=== PATIENT | female | born 1980 | race Caucasian/White ===

== ENCOUNTER 2019-05-16 23:44 | Inpatient (IN) | payer SELFPAY ==
[2019-05-17] VITALS (17 sets, daily range): BP systolic 0–156; BP diastolic 0–84; PULSE 58–81; RESP 16–18; TEMP 36.6–37.3; O2SAT 96–98; BMI 23.0
[2019-05-17] MEDS: lactated ringers 1,000 ML 999 ML (00:05)
[2019-05-17] MEDS: oxytocin 30 UNIT/500 ML BAG 600 UNIT IV (00:25)
--- NOTE | 2019-05-17 00:41 | P.HP_ITS ---
Providers/Chief Complaint Admitting Physician: Cecilio Modi MD Chief Complaint: CONTRACTIONS History of Present Illness MILAD SAAVEDRA is a 38 year old G8, P7 with unsure dating who presented to labor and delivery triage with abdominal pain. Her is complicated by unsure level of care, prior section x1 for breech presentation during second , prior x5, poor social support. The patient presented to labor and delivery triage on the evening of 05/16/2019 with contractions that started at approximately 7:30 in the evening. They got progressively worse and by 10 PM there were quite painful. She stated that her aunt, Cheryl, is a director sanitation bureau and had been caring for her, however was out of town so she presented to labor and delivery triage. In labor and delivery, she was found to be complete, vertex and with a bulging bag of fluid at 2345 on 05/16/2019. I was called as the next on-call provider since she had no provider at the hospital. Review of Systems Narrative: The patient denies fevers, chest pains, cough, nausea, vomiting, diarrhea, constipation, dysuria. She denies prior history of STDs. Medications/Allergies Allergies Allergy/AdvReac Type Severity Reaction Status Date / Time No Known Allergies Allergy Verified 05/17/19 00:37 PFSH Acute PFSH: Statuses (acute, chronic, etc) shown below reflect problem list status as previously entered and may not be historically accurate Medical History (Updated 05/17/19 @ 00:49 by Cecilio Modi MD) History of (Acute) Surgical History (Updated 05/17/19 @ 00:49 by Cecilio Modi MD) History of section (Acute) Physical Exam Narrative: EXAM NARRATIVE: General: Alert and oriented Eyes: Pupils equal round and reactive to light and accommodation Mouth: Mucous membranes moist, pharynx non-erythematous, smells of alcohol on breath Cardiac: Regular rate and rhythm without murmurs Lungs: Clear to auscultation bilaterally without wheezes, crackles or rhonchi Abdomen: Soft, fundus smaller than expected for gestational age Extremities: No edema in the bilateral lower extremities A&P Additional A&P Information The patient presented and delivered rather quickly. Please see delivery note for full details. From the best of my understanding, the patient has not had any significant care other than knowing that this infant is a girl. As far as I know she has not had any labs done. She also smells like she has been drinking alcohol. Because of this we will go ahead and get a full panel as well as a urine drug screen and alcohol level. Currently the patient is doing well and her bleeding is very little. We will watch for any signs of abnormalities in her labs. We will proceed with routine care otherwise. Attestations Medical Necessity Statement*: Patient will be here for greater than 2 midnights due to routine intrapartum and management of labor and delivery. Coding Level of Care Code Acute Wiring Mechanic for Sher Alejandra
--- NOTE | 2019-05-17 00:53 | P.PCNOB_ITS ---
Delivery Note: Date of delivery: May 17, 2019 Pre-delivery diagnoses: 1. Intrauterine at apparent term 2. Limited or potentially lack of care 3. Possible alcohol intoxication pending labs 4. Thick meconium 5. Smoker Post-delivery diagnoses: 1. Intrauterine status post vaginal after section apparently at term 2. Limited or potentially lack of care 3. Possible alcohol intoxication pending labs 4. Thick meconium 5. Nuchal cord x1 6. Smoker 7. Delivery of healthy infant female weighing 6 pounds 10 ounces with Apgars of 7 and 9 Procedure: Vaginal after section Op report anesthesia: None Delivering Physician: Cecilio Modi MD Estimated blood loss (mL): 100 Pre-Delivery Course: The patient presented to labor and delivery triage with contractions that started at approximately 7:30 PM that progressively got worse at 10 PM. For this reason she presented to labor and delivery triage on the evening of 05/16/2019. Upon admission, she was noted to be complete with a bulging bag of fluid. I was called at 2349 on 05/16/2019. I arrived at 12:06 AM on 05/17/2019. The patient stated that she had care from a drywall hanger framer, who is apparently her and and named Rni, however she was out of town, so she presented to the hospital for further evaluation. The patient did not have any OB labs done. She did know that she was going to have a girl. A urine sample and labs were drawn prior to delivery. The patient denied any history of STDs. Delivery: Patient was complete at 2345 on 05/16/2019. AROM was performed at 12:10 AM on 05/17/2019. A moderate amount of meconium stained fluid was noted. The patient began pushing at 12:13 AM on 05/17/2019. The patient pushed well and the infant delivered in the OA position at 12:21 AM on 05/17/2019. There was a tight nuchal cord that could not be reduced as the patient was continue to push. The left shoulder was the anterior shoulder and it delivered with ease. Rest of the delivered with ease. The nuchal cord was reduced and the 's mouth and nose were bulb suctioned by myself. The infant was crying shortly after delivery. Infant was placed on the mother's chest where the nurses were waiting to care for her. The cord was clamped and cut by myself after approximately 1 minute. Cord blood was obtained. The cord was then drained of blood and traction was placed on the umbilical cord. The placenta delivered at 12:24 AM without complication. The placenta was noted to be intact with a peripheral insertion site. The cervix was inspected and no lacerations were noted. The vaginal wall was inspected and a mild abrasion was noted on the right sidewall. There was no bleeding from this lesion and no need for stitches. The uterus was massaged and noted to be firm and midline. There was very little bleeding. Estimated blood loss was 100 mL. The infant's weight was 6 pounds 10 ounces with Apgars of 7 and 9. Currently both the mother and infant are doing well. Post-Delivery Status: We will get routine blood work including an OB panel, alcohol levels, and a urine drug screen to further evaluate. Follow-up based on findings. All questions were answered. Coding Level of Care Code Acute Specialty Therapist for Sher Alejandra
[2019-05-17 01:43] LABS: Rubella IgG 34.1 IU/mL (0.0-9.0)
[2019-05-17 01:52] LABS: Rapid Plasma Reagin Syphilis Nonreactive (Nonreactive)
[2019-05-17 01:54] LABS: Alanine Aminotransferase < 5 U/L (0-33); Albumin Level 3.4 g/dL (3.5-5.2); Alcohol Level < 10 mg/dL (0-10); Alkaline Phosphatase 221 IU/L (35-105); Anion Gap 16.7 (5-19); Aspartate Amino Transferase 14 U/L (0-32); Blood Urea Nitrogen 9 mg/dL (6-20); Calcium 8.8 mg/dL (8.5-10.5); Carbon Dioxide 20 mmol/L (22-29); Chloride 99 mmol/L (98-107); Globulin 3.9 g/dL (1.3-4.6); Glomerular Filtration Rate 112.5 mL/min (90-130); Glucose 123 mg/dL (65-115); Potassium 3.7 mmol/L (3.5-5.1); Sodium 132 mmol/L (136-145); Total Bilirubin 0.2 mg/dL (0.15-1.2); Total Protein 7.3 g/dL (6.6-8.7)
[2019-05-17 01:57] LABS: Hepatitis B Surface Antigen. Non-Reactive (Nonreactive); Hepatitis C Virus Antibody Non-Reactive (Nonreactive)
[2019-05-17 01:59] LABS: HIV 1 & 2 Antibody Non-Reactive (Non-Reactiv); HIV 1 & 2 Antigen Non-Reactive (Non-Reactiv)
[2019-05-17 02:42] LABS: Basophils # 0.1 10^3/uL (0.0-0.1); Basophils % 0.3 %; Eosinophils # 0.1 10^3/uL (0.0-0.8); Eosinophils % 0.3 %; Hemoglobin 10.7 g/dL (11.5-15.3); Lymphocytes # 2.6 10^3/uL (0.8-4.8); Lymphocytes % 11.1 %; Mean Corpuscular HGB Conc 32.4 g/dL (30.0-36.0); Mean Corpuscular Hemoglobin 30.1 pg (28.0-34.0); Mean Corpuscular Volume 92.7 fL (81-99); Mean Platelet Volume 13.2 fL (7.4-10.4); Monocytes # 0.9 10^3/uL (0.2-0.9); Monocytes % 3.9 %; Neutrophils % 82.7 %; Nucleated Red Blood Cells % 0 %; Platelet Count 236 10^3/cmm (130-400); Red Blood Count 3.56 10^6/uL (4.1-5.3); Red Cell Distribution Width 13.2 % (12.1-15.1); Slide Review Slide Review Perform
[2019-05-17 02:50] LABS: Amphetamines Screen Urine Negative (Negative); Barbiturates Screen Urine Negative (Negative); Benzodiazepines Screen Urine Negative (Negative); Cocaine Screen Urine Negative (Negative); Opiate Screen Urine Negative (Negative); PCP Screen Urine Negative (Negative); THC Screen Urine Negative (Negative)
[2019-05-17] MEDS: HYDROcodone-acetaminophen 5-325 mg Tablet PO ×2 (03:25→13:44)
[2019-05-17] MEDS: prenatal vitamin Capsule 1 CAP PO (09:15)
[2019-05-17] MEDS: docusate sodium 100 mg Capsule PO ×2 (09:15→18:21)
[2019-05-17 13:14] LABS: Hematocrit 32.4 % (37.0-47.0); Hemoglobin 10.6 g/dL (11.5-15.3); Mean Corpuscular HGB Conc 32.7 g/dL (30.0-36.0); Mean Corpuscular Hemoglobin 29.6 pg (28.0-34.0); Mean Corpuscular Volume 90.5 fL (81-99); Mean Platelet Volume 13.3 fL (7.4-10.4); Platelet Count 240 10^3/cmm (130-400); Red Blood Count 3.58 10^6/uL (4.1-5.3); White Blood Count 19.5 10^3/uL (4.0-10.0)
[2019-05-17] MEDS: metroNIDAZOLE 500 MG Tablet 2000 MG PO (18:53)
[2019-05-18 04:00] VITALS: BP 118/74; PULSE 79; RESP 16; TEMP 36.7; O2SAT 98
--- NOTE | 2019-05-18 07:59 | PM.DCS ---
Discharge Providers Date of Admission: 05/16/19 23:44 Date of Discharge: May 18, 2019 Attending Provider at Admission: Cecilio Modi MD Attending Provider at Discharge: Cecilio Modi MD Diagnoses at Discharge Discharge Diagnosis (1) Intrauterine : Status: Acute (2) Smoker: Status: Acute Other Information Additional DC diagnoses/information: 1. Intrauterine status post vaginal after section apparently at term 2. Limited or potentially lack of care 3. Possible alcohol use -ruled out with negative labs 4. Thick meconium 5. Nuchal cord x1 6. Smoker 7. Delivery of healthy female weighing 6 pounds 10 ounces with Apgars of 7 and 9 8. Trichomoniasis Reason for Visit Reason for Visit: Reason For Visit: CONTRACTIONS Hospital Course Hospital Course: Pre-Delivery Course: The patient presented to labor and delivery triage with contractions that started at approximately 7:30 PM that progressively got worse at 10 PM. For this reason she presented to labor and delivery triage on the evening of 05/16/2019. Upon admission, she was noted to be complete with a bulging bag of fluid. I was called at 2349 on 05/16/2019. I arrived at 12:06 AM on 05/17/2019. The patient stated that she had care from a lance crewmember/mlrs sergeant, who is apparently her and and named Rin, however she was out of town, so she presented to the hospital for further evaluation. The patient did not have any OB labs done. She did know that she was going to have a girl. A urine sample and labs were drawn prior to delivery. The patient denied any history of STDs. Delivery: Patient was complete at 2345 on 05/16/2019. AROM was performed at 12:10 AM on 05/17/2019. A moderate amount of meconium stained fluid was noted. The patient began pushing at 12:13 AM on 05/17/2019. The patient pushed well and the infant delivered in the OA position at 12:21 AM on 05/17/2019. There was a tight nuchal cord that could not be reduced as the patient was continue to push. The left shoulder was the anterior shoulder and it delivered with ease. Rest of the infant delivered with ease. The nuchal cord was reduced and the infant's mouth and nose were bulb suctioned by myself. The infant was crying shortly after delivery. Infant was placed on the mother's chest where the nurses were waiting to care for her. The cord was clamped and cut by myself after approximately 1 minute. Cord blood was obtained. The cord was then drained of blood and traction was placed on the umbilical cord. The placenta delivered at 12:24 AM without complication. The placenta was noted to be intact with a peripheral insertion site. The cervix was inspected and no lacerations were noted. The vaginal wall was inspected and a mild abrasion was noted on the right sidewall. There was no bleeding from this lesion and no need for stitches. The uterus was massaged and noted to be firm and midline. There was very little bleeding. Estimated blood loss was 100 mL. The 's weight was 6 pounds 10 ounces with Apgars of 7 and 9. Postdelivery course: The patient had labs done and a trichomonas test came back positive. She was given 2 g of metronidazole p.o. x1. The patient's alcohol levels and urine drug screen both returned negative. The patient's other labs returned without other significant abnormalities. The patient has done well and her bleeding has decreased well. Her pain is well controlled currently. She is ambulating, voiding, passing gas and tolerating food by mouth. The patient would like to have her tubes tied and tubal paperwork was signed on the day of discharge. The patient is to follow-up with [facility]GE[facility] for a tubal consultation. All questions were answered. The patient will be discharged and is to room-in with her infant. Physical Exam Narrative: EXAM NARRATIVE: General: Alert and oriented x 3 Cardiac: Regular rate and rhythm without murmurs Lungs: Clear to auscultation bilaterally without wheezes, crackles or rhonchi Abdomen: Soft, fundus is firm and 2 cm below the umbilicus. Extremities: No edema in the bilateral lower extremities Discharge Data Data Completed and Pending: Labs from last 24 hours 05/17/19 13:06 WBC 19.5 H RBC 3.58 L Hgb 10.6 L Hct 32.4 L MCV 90.5 MCH 29.6 MCHC 32.7 RDW 13.0 Plt Count 240 MPV 13.3 H Vitals: Last Vital Signs Temp 98.1 F 05/18/19 04:00 Pulse 79 05/18/19 04:00 Resp 16 05/18/19 04:00 BP 118/74 02/10/20 04:00 Pulse Ox 98 05/18/19 04:00 Discharge Plan Discharge Patient Disposition: Home, Self-Care Condition: Good Prescriptions: New ibuprofen 800 mg Tablet 800 mg PO TID Qty: 60 RF: 0 -U 106.5-1 mg Capsule 1 cap PO DAILY Qty: 60 RF: 0 No Action No Known Home Medications RF: 0 Discharge Orders: Discharge Order (Routine); Ordered 05/18/19 Ordered By: Cecilio Modi Referrals: Claudio Florence MD [Physician] - 1 month (Any [facility] provider okay for referral for tubal consultation) Cecilio Modi MD [Physician] - 6 Weeks Discharge Diet: Regular Discharge Activity: Limit activity as instructed Activity Restrictions/Additional Instructions: Nothing per vagina for 6 weeks. If you have any concerns of complications prior to your appointment, please call [facility] for further instruction Please follow-up with [facility]ACH[facility] OPERATOR for a tubal consultation. Discharge Attestations Time Spent in Discharge Care*: less than 30 min Quality Metrics Clinical Quality Measures During this hospital stay, did patient experience: None Coding Level of Care Code Acute Supervisor Dock for Chg Fwd Diagnoses Intrauterine Z34.90 Smoker F17.200
[2019-05-18] MEDS: prenatal vitamin Capsule 1 CAP PO (09:25)
[2019-05-18] MEDS: docusate sodium 100 mg Capsule PO (09:25)
[2019-05-18 10:31] VITALS: BP 126/82; PULSE 102; RESP 18; TEMP 36.8; O2SAT 99
[2019-05-18] MEDS: HYDROcodone-acetaminophen 5-325 mg Tablet PO (12:01)
[2019-05-18 13:24] VITALS: BP 114/71; PULSE 80; RESP 18; TEMP 36.9; O2SAT 97
--- NOTE | 2019-05-18 13:30 | PC.NURSE ---
Patient is rooming in with baby after discharge. Discussed with patient if she would like her prescriptions sent to the [facility] pharmacy, so they could bring them to her today. Patient denied this option, and stated she would just have them sent to [facility] and she would be fine until she was able to get those tomorrow.
== END 2019-05-18 13:36 | disposition home or self-care (01) | DRG 807 ==
PROVIDERS: Admitting Provider Family Medicine; Visit Provider Family Medicine
DX: O99.334 Smoking (tobacco) complicating childbirth (principal); Z37.0 Single live birth; F17.210 Nicotine dependence, cigarettes, uncomplicated; Z3A.39 39 weeks gestation of pregnancy; O77.0 Labor and delivery complicated by meconium in amniotic fluid; O99.314 Alcohol use complicating childbirth; F10.129 Alcohol abuse with intoxication, unspecified; O69.81X0 Labor and delivery complicated by cord around neck, without compression, not applicable or unspecified; O34.211 Maternal care for low transverse scar from previous cesarean delivery; N85.8 Other specified noninflammatory disorders of uterus
CPT/HCPCS: 12345; 36415; 51701; 59409; 80053; 80307; 85025; 85027; 86592; 86762; 86803; 86850; 86900; 87340; 87491; 87591; 87661; 87806; 99211